=== PATIENT | male | born 1950 | race Caucasian/White ===

== ENCOUNTER 2020-02-02 17:53 | Inpatient (IN) | payer MEDICARE ==
[~2020-02-02] VITALS: Ht 172.7 cm; Wt 76.5 kg
[2020-02-02] MEDS ORDERED: ASPI81TA85 PO (18:04)
[2020-02-02 18:38] LABS: BASO % 0.2 % (0.0-1.0); EOS # 0.4 10^3/uL (0.0-0.5); EOS % 6.9 % (0.0-3.0); HEMATOCRIT 39.8 % (42.0-52.0); HEMOGLOBIN 12.8 g/dl (13.5-17.5); LYMPH # 1.7 10^3/uL (1.5-5.0); LYMPH % 28.1 % (24.0-44.0); MEAN CORPUSCULAR HGB CONC 32.2 g/dl (32.0-36.5); MEAN CORPUSCULAR VOLUME 93.4 fl (80.0-96.0); MONO # 0.7 10^3/uL (0.0-0.8); MONO % 11.4 % (0.0-5.0); NEUTROPHILS # 3.1 10^3/uL (1.5-8.5); NEUTROPHILS % 53.1 % (36.0-66.0); PLATELET COUNT, AUTOMATED 241 10^3/uL (150-450); RED BLOOD COUNT 4.26 10^6/uL (4.30-6.10); WHITE BLOOD COUNT 5.9 10^3/uL (4.0-10.0)
--- NOTE | 2020-02-02 18:40 | REPVR ---
PROCEDURE INFORMATION: Exam: CT Head Without Contrast Exam date and time: 02/02/2020 6:30 PM Age: 69 years old Clinical indication: Dizziness and syncope and collapse and weakness, extremity; Bilateral; Additional info: CVA - nursing interventions must not delay CT TECHNIQUE: Imaging protocol: Computed tomography of the head without contrast. Radiation optimization: All CT scans at this facility use at least one of these dose optimization techniques: automated exposure control; mA and/or kV adjustment per patient size (includes targeted exams where dose is matched to clinical indication); or iterative reconstruction. Other technique: STROKE PROTOCOL was implemented. COMPARISON: No relevant prior studies available. FINDINGS: Brain: There is no acute intracranial hemorrhage, cerebral edema, or midline shift. Chronic microvascular ischemic changes are seen in the periventricular white matter. Age-related cerebral and cerebellar volume loss is present. 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 Ventricles: No hydrocephalus. Bones/joints: No acute fracture. Sinuses: There is no acute sinusitis. Mastoid air cells: The mastoid air cells are clear. Orbits: The included orbital structures are unremarkable. Soft tissues: Unremarkable. IMPRESSION: 1. No acute intracranial abnormality. 2. [place] Stroke Program Early CT Score (ASPECTS) = 10 Electronically signed by: Melvin Frias On 02/02/2020 18:39:43 PM
[2020-02-02] MEDS ORDERED: COLA100C5 PO (18:43)
[2020-02-02] MEDS ORDERED: ATOR40TA75 PO (18:43)
[2020-02-02] MEDS ORDERED: FAMO1TAB25 PO (18:43)
[2020-02-02] MEDS ORDERED: OMEP10CASR PO (18:43)
[2020-02-02] MEDS ORDERED: MULTCAP PO (18:43)
[2020-02-02 18:49] LABS: INR 1.03; PARTIAL THROMBOPLASTIN TIME 29.2 SECONDS (25.0-38.4); PROTHROMBIN TIME 13.2 SECONDS (11.8-14.0)
[2020-02-02 18:59] LABS: CK-MB VALUE MASS 2.4 NG/ML (<3.6); CPK CREATINE PHOSPHOKINASE 283 U/L (39-308); MB/CK RELATIVE INDEX 0.85 (< OR =4); TROPONIN I < 0.02 NG/ML (< 0.10)
--- NOTE | 2020-02-02 19:29 | ECGEPIP ---
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
[2020-02-02] MEDS ORDERED: OMEP-218 PO (20:30)
[2020-02-02] MEDS ORDERED: FAMO1TAB11 PO (20:31)
[2020-02-02] MEDS ORDERED: CALC500T61 PO (20:31)
--- NOTE | 2020-02-02 20:59 | HPEPDOC ---
General Date of Admission 02/02/20 Date of Service: Feb 02, 2020 Chief Complaint The patient is a 69-year-old male admitted with a reason for visit of Syncopal Episode/Dizziness/ Fatigue/Weakness. Source: Patient History of Present Illness 69 year old male from [place] who spends his summer up here in [place] came up 6 days ago presented to [facility] ED with 2 episodes of drooling and weakness which each time lasted for 1 to 2 minutes. This afternoon he was in the attic when he fell to his knees and noticed drooling of saliva from th left. the thought he slipped on the hardwood floor. Then when he was coming down the stiars he dropped a thing he was carrying he thinks it was in his right hand not sure. About an hour later around 2:30 pm he was sitting in the kitchen chair when his noticed drooling again from his left angle of mouth , with some drooping on the left and slurring of speech. he noticed weakness in his left hand as well as his right hand last about 1 minute then resolved. EMS was called and he was brought to the ED for evaluation. In the ED CT head did not show any acute events, His labs were within normal limits. Patient denied any headache or visual problem. He was admitted for evaluation of TIA. Home Medications Scheduled Aspirin (Aspir 81) 81 Mg Tablet.dr, 81 MG PO 3XW, (Reported) MON/FRI/FRI MORNINGS Atorvastatin Calcium (Atorvastatin Calcium) 40 Mg Tablet, 40 MG PO QPM, (Reported) Calcium Carbonate (Calcium Carbonate) 500 Mg Tablet, 500 MG PO QHS, (Reported) Docusate Sodium (Colace) 100 Mg Capsule, 200 MG PO BID, (Reported) Famotidine (Famotidine) 20 Mg Tablet, 20 MG PO QHS, (Reported) Multivitamin (Multivitamins) 1 Each Capsule, 1 CAP PO QPM, (Reported) Omeprazole (Omeprazole) 20 Mg Capsule.dr, 20 MG PO BID, (Reported) Allergies Coded Allergies: shellfish derived (Verified Allergy, Unknown, 02/02/20) Past Medical History Medical History Girard esophagus, h/o gastric ulcer, Hyperlipidemia, mild atherosclerotic disease of the carotids, vasovagal syncope Surgical History left inguinal hernia, vascetomy Family History Significant Family History: Cancer (father colon cancer), Diabetes (twin brother), Heart disease (father), Hypertension (twin brother) Social History * Smoker: Denies Alcohol: Denies Drugs: denies A-FIB/CHADSVASC A-FIB History Current/History of A-Fib/PAF?: No Review of Systems Constitutional: Denies: Chills, Fever, Night Sweats Eyes: Denies: Pain, Vision change ENT: Denies: Head Aches, Ear Pain, Dysphagia Skin: Denies: Rash, Lesions, Breakdown Pulmonary: Denies: Dyspnea, Cough Cardiovascular: Denies: Chest Pain, Palpitations, Orthopnea, Paroxysmal Noc. Dyspnea, Lt Headedness Gastrointestinal: Denies: Nausea, Vomiting, Abdominal Pain, Diarrhea Genitourinary: Denies: Dysuria, Frequency, Incontinence, Retention Hematologic: Denies: Bruising, Bleeding Excessively Musculoskeletal: Denies: Neck Pain, Back Pain, Joint Pain, Muscle Pain, Spasms Neurological: Reports: Weakness (of left hand), Change in speech (slurring), Other Symptoms (drooling from the left) Physical Examination General Exam: Positive: Alert, Cooperative, No Acute Distress Eye Exam: Positive: PERRLA, Conjunctiva & lids normal, EOMI; Negative: Sclera icteric ENT Exam: Positive: Atraumatic, Mucous membr. moist/pink, Pharynx Normal Neck Exam: Positive: Supple; Negative: JVD, thyromegaly Chest Exam: Positive: Clear to auscultation, Normal air movement Heart Exam: Positive: Rate Normal, Regular Rhythm, Normal S1, Normal S2; Negative: Murmurs, Rubs Telemetry: Positive: No significant arrhythmia Abdomen Exam: Positive: Normal bowel sounds, Soft, Other (obese); Negative: Tenderness, Hepatospenomegaly Extremity Exam: Negative: Clubbing, Cyanosis, Edema Skin Exam: Positive: Nl turgor and temperature; Negative: Breakdown, Lesion Neuro Exam: Positive: Normal Speech, Strength at 5/5 X4 ext, Normal Tone, Sensation Intact Vital Signs Vital Signs Date Time Temp Pulse Resp B/P (MAP) Pulse Ox O2 Delivery O2 Flow Rate FiO2 02/02/20 19:15 113/55 (74) 02/02/20 19:00 69 98 02/02/20 17:54 98.3 17 Room Air Laboratory Data Labs 24H Laboratory Tests 2 02/02/20 18:20: Prothrombin Time 13.2, Prothromb Time International Ratio 1.03, Activated Partial Thromboplast Time 29.2 02/02/20 18:21: Immature Granulocyte % (Auto) 0.3, Neutrophils (%) (Auto) 53.1, Lymphocytes (%) (Auto) 28.1, Monocytes (%) (Auto) 11.4H, Eosinophils (%) (Auto) 6.9H, Basophils (%) (Auto) 0.2, Neutrophils # (Auto) 3.1, Lymphocytes # (Auto) 1.7, Monocytes # (Auto) 0.7, Eosinophils # (Auto) 0.4, Basophils # (Auto) 0.0, Nucleated Red Blood Cells % (auto) 0.0, Total Creatine Kinase 283, Creatine Kinase MB 2.4, Creatine Kinase MB Relative Index 0.85, Troponin I < 0.02 02/02/20 18:25: POC Glucose (Misc Panel) 90, POC Sodium (Misc Panel) 142, POC Potassium (Misc Panel) 3.9, POC Chloride (Misc Panel) 104, POC Total CO2 (Misc Panel) 26.0, POC Blood Urea Nitrogen (Misc Panel 17, POC Ionized Calcium (Misc Panel) 4.6, POC Creatinine (Misc Panel) 1.1, POC Hematocrit (Misc Panel) 40.0 CBC/BMP Laboratory Tests 02/02/20 18:21 Assessment/Plan 69 year old male from [place] who spends his summer up here in [place] came up 6 days ago presented to [facility] ED with 2 episodes of drooling and weakness which each time lasted for 1 to 2 minutes. This afternoon he was in the attic when he fell to his knees and noticed drooling of saliva from th left. the thought he slipped on the hardwood floor. Then when he was coming down the stiars he dropped a thing he was carrying he thinks it was in his right hand not sure. About an hour later around 2:30 pm he was sitting in the kitchen chair when his noticed drooling again from his left angle of mouth , with some drooping on the left and slurring of speech. he noticed weakness in his left hand as well as his right hand last about 1 minute then resolved. EMS was called and he was brought to the ED for evaluation. In the ED CT head did not show any acute events, His labs were within normal limits. Patient denied any headache or visual problem. He was admitted for evaluation of TIA. TIA/stroke will admit to telemetry, MRI and MRA, carotid doppler, Echo with bubble study On ASA and Stain will continue Hyperlipidemia statin continue Girard esophagus/ gastric ulcer Famotidine, PPI Plan / VTE VTE Prophylaxis Ordered?: Yes BLNACO PRATT MD Feb 02, 2020 20:46
[2020-02-02 22:00] VITALS: BP 121/70
[2020-02-02 22:12] VITALS: BP 152/90
--- NOTE | 2020-02-02 22:18 | REPVR ---
PROCEDURE INFORMATION: Exam: MR Head Without Contrast Exam date and time: 02/02/2020 9:42 PM Age: 69 years old Clinical indication: Syncope and collapse; Additional info: TIA TECHNIQUE: Imaging protocol: MR of the head without contrast. 3D rendering: MIP and/or 3D reconstructed images were created by the technologist. COMPARISON: CT Head without contrast 02/02/2020 6:22 PM FINDINGS: Brain: Mild chronic microvascular ischemic changes. GRE signal is seen in the right parietal lobe gyrus, likely vascular. Small acute infarct in the right basal ganglia measuring 6 mm. Ventricles: Normal. No ventriculomegaly. Bones/joints: Unremarkable. Sinuses: Normal as visualized. No acute sinusitis. Mastoid air cells: Normal as visualized. No mastoid effusion. Orbits: Unremarkable. Soft tissues: Unremarkable. IMPRESSION: Small acute infarct in the right basal ganglia measuring 6 mm. Electronically signed by: Bo Ellison On 02/02/2020 22:17:34 PM
--- NOTE | 2020-02-02 22:24 | REPVR ---
PROCEDURE INFORMATION: Exam: MR Angiogram Head Without Contrast, Arteries Exam date and time: 02/02/2020 9:43 PM Age: 69 years old Clinical indication: Syncope and collapse; Additional info: TIA TECHNIQUE: Imaging protocol: MR angiogram head without contrast. Exam focused on the arteries. COMPARISON: CT Head without contrast 02/02/2020 6:22 PM FINDINGS: Anterior cerebral arteries: Intracranial segment is patent with no significant stenosis. No aneurysm. Right internal carotid artery: Intracranial segment is patent with no significant stenosis. No aneurysm. Right middle cerebral artery: No occlusion or significant stenosis. No aneurysm. Right posterior cerebral artery: No occlusion or significant stenosis. No aneurysm. Right vertebral artery: Right vertebral artery ends in PICA. Left internal carotid artery: Intracranial segment is patent with no significant stenosis. No aneurysm. Left middle cerebral artery: No occlusion or significant stenosis. No aneurysm. Left posterior cerebral artery: No occlusion or significant stenosis. No aneurysm. Left vertebral artery: The left vertebral artery continues as the basilar artery. Basilar artery: No occlusion or significant stenosis. No aneurysm. IMPRESSION: No acute abnormality. Electronically signed by: Bo Ellison On 02/02/2020 22:23:44 PM
--- NOTE | 2020-02-02 22:29 | REPVR ---
PROCEDURE INFORMATION: Exam: US Duplex Bilateral Extracranial Arteries Exam date and time: 02/02/2020 10:03 PM Age: 69 years old Clinical indication: Other: TIA TECHNIQUE: Imaging protocol: Real-time Duplex ultrasound scan of the bilateral carotid and vertebral arteries combining velasquez scale, color Doppler and spectral waveform analysis. Bilateral exam. COMPARISON: CT Head without contrast 02/02/2020 6:22 PM FINDINGS: Right common carotid artery: Unremarkable. No occlusion or stenosis. Waveforms are normal. Right internal carotid artery: Unremarkable. No occlusion or stenosis. Waveforms are normal. Right ICA/CCA ratio: 0.68 Right external carotid artery: No stenosis in the origin. Right vertebral artery: Unremarkable. Antegrade flow. Left common carotid artery: Unremarkable. No occlusion or stenosis. Waveforms are normal. Left internal carotid artery: Unremarkable. No occlusion or stenosis. Waveforms are normal. Left ICA/CCA ratio: 1.07 Left external carotid artery: No stenosis in the origin. Left vertebral artery: Unremarkable. Antegrade flow. Soft and hard plaque is seen in bilateral common carotid and proximal internal carotid arteries. IMPRESSION: Mild stenosis(less than 50%) of bilateral internal carotid arteries as per NASCET criteria. REFERENCES: SRU CRITERIA. The degree of internal carotid artery stenosis is based on criteria defined by the Society of Radiologists in Ultrasound (SRU). Normal is no stenosis. Mild is less than 50% stenosis. Moderate is 50-69% stenosis. Severe is greater than 69% stenosis to near occlusion. Near occlusion is a markedly narrowed lumen. Total occlusion is no detectable patent lumen. Electronically signed by: Bo Ellison On 02/02/2020 22:29:04 PM
--- NOTE | 2020-02-02 22:56 | REP ---
REASON: Stroke-like symptoms. FINDINGS: The technique utilized in obtaining the radiograph has magnified the cardiac silhouette and accentuated the interstitial markings. The superior mediastinal structures are midline. The cardiac silhouette is unremarkable in size, shape, and position. The diaphragmatic surfaces of the lungs are regular, and the costophrenic angles are clear. The pulmonary jj are clear. The imaged osseous structures are intact. IMPRESSION: There is no acute cardiopulmonary disease. Electronically Signed by Deandre Lubin DO 02/03/2020 02:31 P
[2020-02-02] MEDS: DOCUSATE SODIUM 100 MG CAP PO SCH (23:11)
[2020-02-02] MEDS: FAMOTIDINE 20 MG TAB PO SCH (23:12)
[2020-02-02] MEDS: ATORVASTATIN 20 MG TAB PO SCH (23:12)
[2020-02-02] MEDS: OMEPRAZOLE 20 MG CAP PO SCH (23:12)
[2020-02-02] MEDS: ENOXAPARIN 40MG/0.4ML SYRINGE (J1650 PER 10MG) SC SCH (23:13)
[2020-02-02] MEDS: ASPIRIN 325 MG TAB PO SCH (23:28)
--- NOTE | 2020-02-02 23:42 | IPNPDOC ---
Text Note Date of Service The patient was seen on 02/02/20. NOTE MRI showed a small basal ganglia CVA about 6 mm[address] I spoke with Dr. lemons whose in neurology manager distribution today and he agreed with the increasing aspirin to 325 mg by mouth daily, Lipitor 40 mg by mouth daily and keep patient's blood pressure under 140 systolic. And he also recommended to get echocardiogram done. Once the workup is complete. He can be called back for further recommendations. As per Teri Franco patient is outside the window for TPA VS,Fishbone, I+O VS, Fishbone, I+O Laboratory Tests 02/02/20 18:21 Vital Signs Date Time Temp Pulse Resp B/P (MAP) Pulse Ox O2 Delivery O2 Flow Rate FiO2 02/02/20 22:00 97.3 63 18 121/70 Room Air 02/02/20 19:00 98 ANDREA CABRERA MD Feb 02, 2020 23:42
[2020-02-03 06:00] VITALS: BP_SYST 110; BP_DIAS 5; BP_DIAS 59
[2020-02-03 06:25] LABS: HEMATOCRIT 37.7 % (42.0-52.0); HEMOGLOBIN 12.2 g/dl (13.5-17.5); MEAN CORPUSCULAR HEMOGLOBIN 30.1 pg (27.0-33.0); MEAN CORPUSCULAR HGB CONC 32.4 g/dl (32.0-36.5); MEAN CORPUSCULAR VOLUME 93.1 fl (80.0-96.0); PLATELET COUNT, AUTOMATED 217 10^3/uL (150-450); RED BLOOD COUNT 4.05 10^6/uL (4.30-6.10); WHITE BLOOD COUNT 5.5 10^3/uL (4.0-10.0)
[2020-02-03 06:48] LABS: BLOOD UREA NITROGEN 15 MG/DL (7-18); CALCIUM LEVEL 8.5 MG/DL (8.8-10.2); CARBON DIOXIDE LEVEL 26 MEQ/L (21-32); CHLORIDE LEVEL 107 MEQ/L (98-107); CREATININE FOR GFR 0.98 MG/DL (0.70-1.30); GLOMERULAR FILTRATION RATE > 60.0 (>49); GLUCOSE, FASTING 92 MG/DL (70-100); POTASSIUM SERUM 3.7 MEQ/L (3.5-5.1); SODIUM LEVEL 139 MEQ/L (136-145)
[2020-02-03] MEDS: DOCUSATE SODIUM 100 MG CAP PO SCH ×2 (09:31→21:06)
[2020-02-03] MEDS: ASPIRIN 325 MG TAB PO SCH (09:31)
[2020-02-03] MEDS: OMEPRAZOLE 20 MG CAP PO SCH ×2 (09:31→21:06)
--- NOTE | 2020-02-03 12:13 | IPNPDOC ---
Text Note Date of Service The patient was seen on 02/03/20. NOTE Subjective: Patient is a 69-year-old male with a PMHx of Girard esophagus / Gastric ulcer Hx, DLP, Mild atherosclerotic disease of the carotids, vasovagal syncope who presented to the emergency room after earlier that day experiencing drooling of his mouth and questionable left-sided facial droop with left upper extremity weakness. Upon arrival to emergency room, patient had full resolution of his symptoms without any focal neurologic deficits noted. Patient was admitted to the hospitalist service for further evaluation and treatment. I assume care of this patient at 7 AM this morning. Patient had MRIs completed overnight that had revealed evidence of acute infarct. Patient was seen and examined at the bedside. Currently he denies any weakness, facial droop, nausea, vomiting, abdominal pain, constipation, diarrhea or urinary discomfort. Objective: Vitals (See below) General: Lying in bed, appears comfortable, AAOx3 HEENT: NC, AT CVS: +S1S2 Lungs: Fair air entry b/l, -w/r/r Abdomen: Soft, ND, NT Extremities: - Edema, - Calf tenderness Neuro: 5/5 strength at upper/lower extremities bilaterally Assessment and plan: Facial droop / Left sided (> right sided) Upper extremity weakness - likely 2/2 acute right sided basal ganglia infarct - Currently patient has had resolution of his symptoms - Physical without any focal neurologic deficits - Will check cardiac risk panel - CT head 02/01: 1. No acute intracranial abnormality. 2. [place] Stroke Program Early CT Score (ASPECTS) = 10 - MRA brain 02/01: No acute abnormality. - MRI brain 02/01: Small acute infarct in the right basal ganglia measuring 6 mm. - Vascular Carotid Duplex US 02/01: Mild stenosis(less than 50%) of bilateral inte rnal carotid arteries as per NASCET criteria. - ECHO pending - Will c/w telemetry monitoring - c/w ASA 325, increased from 81 daily, c/w Atorvastatin - c/w PT and OT - Will require outpatient follow up with Neurology within 7 days. DLP - Will check cardiac risk profile - c/w Atorvastatin GI prophylaxis / Girard esophagus / Gastric ulcer Hx - c/w Famotidine and Omeprazole DVT prophylaxis - c/w Lovenox Disposition: - Will remain inpatient for completion of telemetry monitoring - Anticipate DC on Friday am VS,Fishbone, I+O VS, Omidbone, I+O Laboratory Tests 02/02/20 18:21 02/03/20 06:05 Vital Signs Date Time Temp Pulse Resp B/P (MAP) Pulse Ox O2 Delivery O2 Flow Rate FiO2 02/03/20 06:00 97.1 65 18 110/5 (40) 96 02/02/20 22:12 Room Air I&O- Last 24 Hours up to 6 AM 02/03/20 06:00 Intake Total 300 ml Output Total 250 ml Balance 50 ml CHASE BROWN MD Feb 03, 2020 12:13
[2020-02-03 14:00] VITALS: BP 118/65
[2020-02-03] MEDS: FAMOTIDINE 20 MG TAB PO SCH (21:06)
[2020-02-03] MEDS: ATORVASTATIN 20 MG TAB PO SCH (21:06)
[2020-02-03] MEDS: ENOXAPARIN 40MG/0.4ML SYRINGE (J1650 PER 10MG) SC SCH (21:06)
[2020-02-03 22:00] VITALS: BP 127/76
[2020-02-04 06:00] VITALS: BP 120/71
[2020-02-04 08:12] LABS: BLOOD UREA NITROGEN 14 MG/DL (7-18); CARBON DIOXIDE LEVEL 27 MEQ/L (21-32); CHLORIDE LEVEL 109 MEQ/L (98-107); CHOLESTEROL LEVEL 146 MG/DL (<200); CHOLESTEROL RISK RATIO 2.754 (<5); CREATININE FOR GFR 1.02 MG/DL (0.70-1.30); GLOMERULAR FILTRATION RATE > 60.0 (>49); GLUCOSE, FASTING 97 MG/DL (70-100); HDL CHOLESTEROL 53 MG/DL (>40); LDL CHOLESTEROL 77 MG/DL (<100); MAGNESIUM LEVEL 2.3 MG/DL (1.8-2.4); NON-HDL-C 93 MG/DL; SODIUM LEVEL 142 MEQ/L (136-145); TRIGLYCERIDES LEVEL 79 MG/DL (<150)
[2020-02-04] MEDS ORDERED: ASPIRIN 81 MG ENTERIC TAB PO SCH (09:00)
[2020-02-04] MEDS: ASPIRIN 325 MG TAB PO SCH (10:04)
[2020-02-04] MEDS: OMEPRAZOLE 20 MG CAP PO SCH (10:04)
[2020-02-04] MEDS: DOCUSATE SODIUM 100 MG CAP PO SCH (10:04)
--- NOTE | 2020-02-04 13:31 | ECHO ---
DATE OF PROCEDURE: 02/03/2020 DATE OF : 1950 AGE: 69 GENDER: Male HEIGHT: 66 inches WEIGHT: 169 pounds BODY SURFACE AREA: 1.87 m2 INPATIENT: 4 [place] room 4228 REFERRING PHYSICIAN: Dr. Agata Trotter INDICATION: Transient ischemic attack (TIA) - cardiac source of embolic material query. MEASUREMENTS: 2-D Measurements: RV: 3.8 cm LV: 4.1 cm Septum: 1.0 cm Posterior wall: 1.0 cm Aortic root: 3.0 cm LA: 3.8 cm LVEF: 65% Doppler Measurements: AV: 1.2 m/sec LVOT: 1.0 m/sec LVOT diameter: 2.0 cm MV - E: 50, A: 51, EA ratio: 1 Early mitral deceleration time: 260 ms E prime medial: 9, A prime medial: 11, E prime lateral: 9.6 PV: 0.75 m/sec Pulmonary artery acceleration time: 115 ms RVSP: 32 mmHg IVC: 1.8 cm COMMENTS: Normal sinus rhythm without intraventricular conduction disturbance. M-mode and two-dimensional echocardiography was performed with pulsed, continuous wave, color flow and tissue Doppler studies. A separate saline contrast study was also performed. Normal left ventricular size, wall thickness and wall motion. Left atrial size upper limits of normal with currently normal Doppler assessment of LV diastolic function and estimated mean left atrial pressure. Normal right heart chamber sizes and motion with Doppler sign of borderline to mild pulmonary hypertension. Normal IVC size and collapse against an elevated central venous pressure. Normal aortic dimensions. Normal-appearing and functioning valvular structures. No apparent intracardiac mass or pericardial effusion. Three separate saline contrast studies were performed from the apical four-chamber projection. There was good opacification of the right heart chambers. 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
[2020-02-04 14:00] VITALS: BP 117/58
[2020-02-04] MEDS ORDERED: ASPI-1 PO (14:14)
--- NOTE | 2020-02-04 14:40 | DS.PDOC ---
Discharge Summary General Date of Admission Feb 02, 2020 at 20:46 Date of Discharge 02/04/2020 Discharge Summary PROCEDURES PERFORMED DURING STAY: [None]. ADMITTING DIAGNOSES / DISCHARGE DIAGNOSES: Facial droop / Left sided (> right sided) Upper extremity weakness - likely 2/2 acute right sided basal ganglia infarct DLP GI prophylaxis / Girard esophagus / Gastric ulcer Hx DVT prophylaxis COMPLICATIONS/CHIEF COMPLAINT: Left upper extremity weakness / Left facial droop HISTORY OF PRESENT ILLNESS: Patient is a 69-year-old male with a PMHx of Girard esophagus / Gastric ulcer Hx, DLP, Mild atherosclerotic disease of the carotids, vasovagal syncope who presented to the emergency room on evening of 02/01, after experiencing drooling of his mouth and questionable left-sided facial droop with left upper extremity weakness that morning. Upon arrival to emergency room, patient had full resolution of his symptoms without any focal neurologic deficits noted. Patient was admitted to the hospitalist service for further evaluation and treatment. HOSPITAL COURSE: Facial droop / Left sided (> right sided) Upper extremity weakness - likely 2/2 acute right sided basal ganglia infarct - No focal deficits on exam - CT head 02/01: 1. No acute intracranial abnormality. 2. [place] Stroke Program E shawn CT Score (ASPECTS) = 10 - MRA brain 02/01: No acute abnormality. - MRI brain 02/01: Small acute infarct in the right basal ganglia measuring 6 mm. - Vascular Carotid Duplex US 02/01: Mild stenosis(less than 50%) of bilateral internal carotid arteries as per NASCET criteria. - ECHO noted without any significant abnormalities - c/w telemetry monitoring - c/w ASA 325, s/p ASA 81 - c/w Atorvastatin - c/w PT and OT - Will have outpatient follow up with PCP, Neurology and Cardiology within 7 days - Advised patient to follow up with Cardiology for continued heart monitoring DLP - Cardiac risk profile noted - c/w Atorvastatin GI prophylaxis / Girard esophagus / Gastric ulcer Hx - c/w Famotidine and Omeprazole DVT prophylaxis - c/w Lovenox DISCHARGE MEDICATIONS: Please see below. ALLERGIES: Please see below. PHYSICAL EXAMINATION ON DISCHARGE: Vitals (See below) General: Lying in bed, appears comfortable, AAOx3 HEENT: NC, AT CVS: +S1S2 Lungs: Fair air entry b/l, auscultation without rhonchi, rales / wheezing Abdomen: Remains soft, without any distention or tenderness Extremities: Lower extremity without evidence of edema, - Calf tenderness Neuro: 5/5 strength at upper/lower extremities bilaterally LABORATORY DATA: Please see below. ACTIVITY: [As tolerated]. DISCHARGE PLAN Follow up with PCP, Dr. Dawson and Neurology within 7 days Remain compliant with treatment plan and medications Return to the ER if you experience any problems DISPOSITION: Home with services DISCHARGE CONDITION: [Stable]. TIME SPENT ON DISCHARGE: 35 minutes. Vital Signs/I&Os Vital Signs Date Time Temp Pulse Resp B/P (MAP) Pulse Ox O2 Delivery O2 Flow Rate FiO2 02/04/20 14:00 98.1 60 18 117/58 (77) 95 Room Air I&O- Last 24 Hours up to 6 AM 02/04/20 06:00 Intake Total 1690 ml Output Total 975 ml Balance 715 ml Laboratory Data Labs 24H Laboratory Tests 2 02/04/20 07:27: Anion Gap 6L, Glomerular Filtration Rate > 60.0, Calcium Level 8.0L, Magnesium Level 2.3, Triglycerides Level 79, Total Cholesterol 146, LDL Cholesterol 77, Non-HDL Cholesterol (LDL + VLDL) 93, Total HDL Cholesterol 53, Cholesterol/HDL Ratio 2.754 CBC/BMP Laboratory Tests 02/04/20 07:27 Discharge Medications Scheduled Aspirin (Aspirin) 325 Mg Tablet, 325 MG PO DAILY Atorvastatin Calcium (Atorvastatin Calcium) 40 Mg Tablet, 40 MG PO QPM, (Reported) Calcium Carbonate (Calcium Carbonate) 500 Mg Tablet, 500 MG PO QHS, (Reported) Docusate Sodium (Colace) 100 Mg Capsule, 200 MG PO BID, (Reported) Famotidine (Famotidine) 20 Mg Tablet, 20 MG PO QHS, (Reported) Multivitamin (Multivitamins) 1 Each Capsule, 1 CAP PO QPM, (Reported) Omeprazole (Omeprazole) 20 Mg Capsule., 20 MG PO BID, (Reported) Allergies Coded Allergies: shellfish derived (Verified Allergy, Unknown, 02/02/20) CHASE BROWN MD Feb 04, 2020 14:40
== END 2020-02-04 16:22 | disposition home or self-care (01) | DRG 66 ==
LOC: M ED 17:53 → M ED INP 20:46 → ENRESERV 21:38 → M MSPAV 22:09
PROVIDERS: ADMIT Internal Medicine Nephrology; ATTEND Internal Medicine
DX: I63.9 Cerebral infarction, unspecified (principal); K22.70 Barrett's esophagus without dysplasia; Z79.899 Other long term (current) drug therapy; Z79.82 Long term (current) use of aspirin; Z91.013 Allergy to seafood; E78.5 Hyperlipidemia, unspecified

== ENCOUNTER → 2020-03-17 | Outpatient (CLI) | payer MEDICARE ==
[~2020-03-17] MED LIST: ASPI-1 PO; ASPI81TA86 PO; ATOR40TA75 PO; CALC500T61 PO; COLA100C5 PO; FAMO1TAB11 PO; FAMO1TAB25 PO; MULTCAP PO; OMEP-218 PO; OMEP10CASR PO
== END ==
LOC: M LABSMTC 11:35
PROVIDERS: ATTEND Anesthesiology
DX: Z01.818 Encounter for other preprocedural examination (principal); Z11.59 Encounter for screening for other viral diseases
CPT/HCPCS: C9803; U0003

== ENCOUNTER 2020-03-22 13:28 | Day surgery (SDC) | payer MEDICARE ==
[~2020-03-22] VITALS: Ht 172.7 cm; Wt 75.3 kg
[~2020-03-22 13:28] MED LIST changes: +ASPI81TA85 PO; -ASPI81TA86 PO
[2020-03-22] MEDS ORDERED: NS 1,000 ML IV ONE (14:00)
[2020-03-22] MEDS ORDERED: MIDAZOLAM INJ 2MG/2ML VIAL (J2250 PER 1MG) As Ordered ONE (14:12)
[2020-03-22] MEDS ORDERED: LIDOCAINE VISCOUS 2% SOLN 15ML UDC As Ordered ONE (14:14)
[2020-03-22] MEDS ORDERED: LIDOCAINE VISCOUS 2% SOLN 15ML UDC PO ONE (14:15)
[2020-03-22] MEDS ORDERED: MIDAZOLAM INJ 2MG/2ML VIAL (J2250 PER 1MG) IV ONE ×2 (14:16→14:19)
--- NOTE | 2020-03-22 15:00 | T-ECHO ---
DATE OF PROCEDURE: 03/22/2020 REFERRING PHYSICIAN: Dr. Raphael Dawson. PREPROCEDURE DIAGNOSIS: Cryptogenic stroke. POSTPROCEDURE DIAGNOSIS: Cryptogenic stroke, patent foramen ovale. FINDINGS: Patent foramen ovale. PROCEDURE PERFORMED: Transesophageal echocardiogram with saline bubble study times two. PHYSICIAN: Raphael Dawson MD. MANUFACTURING MAINTENANCE TECHNICIAN: None. IV SEDATION: Midazolam 4 mg IV. COMPLICATIONS: None. PROCEDURE DESCRIPTION: Patient was given viscus lidocaine to gargle and swallow. Following this, he received a total of midazolam 4 mg IV for light sedation. Patient tolerated the procedure well without any immediate complications. Esophageal intubation was accomplished by Dr. Dawson without difficulty using a two-dimensional transesophageal echocardiogram probe (Johan). The rhythm was sinus. The left and right ventricles appear normal in size and systolic function. Atria appear normal in size. The atrial septum appeared intact anatomically. Saline bubble study was performed times two with Valsalva maneuver release and demonstrated moderate bubble shunting from the right atrium to the left atrium via the PFO upon Valsalva maneuver release proving presence of a patent foramen ovale. No mass or thrombi were seen within the atria or their appendages. Pulmonary vein flow by pulsed wave Doppler in left upper pulmonary vein was normal. All the cardiac valves were structurally and functionally normal. Mild mitral regurgitation was present and within physiologic limits. No regurgitation at the other cardiac valves. No pericardial effusion. Distal aortic arch and descending thoracic aorta were normal. COMPARISON: 1. Presence of patent foramen ovale with demonstration of saline bubble shunting from right atrium to the left atrium via the PFO with Valsalva maneuver release. 2. Otherwise normal transesophageal echocardiogram ([facility]) findings.
[2020-03-22 15:17] VITALS: BP 132/76
== END 2020-03-22 15:57 | disposition home or self-care (01) ==
LOC: M OPP 13:28
PROVIDERS: ATTEND Internal Medicine Cardiovascular Disease
DX: I63.9 Cerebral infarction, unspecified (principal); I65.23 Occlusion and stenosis of bilateral carotid arteries; E78.00 Pure hypercholesterolemia, unspecified; Z79.82 Long term (current) use of aspirin; Z79.899 Other long term (current) drug therapy; E66.3 Overweight; K22.70 Barrett's esophagus without dysplasia; Z91.013 Allergy to seafood
CPT/HCPCS: 93312; 93320; 93325; J2250